=== PATIENT | male | born 1945 | race Caucasian/White ===

== ENCOUNTER 2018-01-03 18:33 | Inpatient (IN) ==
[2018-01-03 19:11] LABS: Basophils % 0.3 %; Eosinophils # 0.1 K/mcL (0.0-0.6); Hematocrit 42.5 % (37.5-50.1); Hemoglobin 14.6 g/dL (12.9-16.9); Immature Granulocytes % 0.4 % (0-4); Lymphocytes # 2.4 K/mcL (0.6-4.6); Mean Corpuscular HGB Conc 34.4 g/dL (31.6-35.5); Mean Corpuscular Hemoglobin 29.9 pg (28.0-33.3); Mean Corpuscular Volume 87.1 fL (83.0-100.0); Mean Platelet Volume 11.5 fL (9.4-12.4); Monocytes # 0.6 K/mcL (0.0-1.3); Monocytes % 6.1 %; Neutrophils # 6.8 K/mcL (1.6-8.9); Platelet Count 221 K/mcL (140-400); Red Blood Count 4.88 M/mcL (4.19-5.50); Red Cell Distribution Width 14.5 % (11.5-14.5); Segmented Neutrophils % 68.2 %
[2018-01-03 19:30] LABS: BUN/Creatinine Ratio 17 (6-26); Blood Urea Nitrogen 35 mg/dL (8-23); Carbon Dioxide 25 mEq/L (23-29); Chloride 103 mEq/L (98-107); Glucose 202 mg/dL (70-105); Osmolality,Calculated 302 (280-300); Potassium 3.6 mEq/L (3.5-5.1); Sodium 139 mEq/L (136-145); eGFR For African Americans 38 (> 60); eGFR For Non-African Americans 31 (> 60)
[2018-01-03 19:31] LABS: Troponin I < 0.03 ng/mL (< 0.04)
--- NOTE | 2018-01-03 20:44 | Emergency Department Note ---
Disposition Clinical Impression: Right arm numbness, Anginal equivalent Disposition: Admitted As Inpatient Condition: Fair Time of Disposition: 20:47 General Adult HPI - General Chief complaint: ED Extremity Problem,Nontraumatic Stated complaint: right hand decreased movement Time Seen by Provider: 01/03/18 18:49 Source: patient Mode of arrival: ambulatory Limitations: no limitations Nursing Notes Reviewed: Yes Vital Signs Reviewed: Yes - History of Present Illness HPI Narrative: Patient presents to the ED with 2 complaints. Patient states that he has a history of an CT 14 years ago which apparently resulted in cardiac arrest and transferred to [place] for revascularization. States that he had a stent placed about 4 years ago and that today he started developing similar symptoms to his CT in the past. States that he started getting of vague pain in his upper back and lower neck that radiated to both of his shoulders and made his shoulders and trapezius muscles feel weak. Denies any chest pain but states he got sweaty and nauseated, dizzy and almost passed out. 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 No history of CVA. He does take aspirin and has had no recent falls. He states it has been about the same throughout the day. He states that his strength feels normal, but it feels numb, so he does not feel like he can grasp things as strongly as he could, because he cannot feel it. No fever or recent illnesses. Pain Scale: 7 - Related Data Home Medications Medication Instructions Recorded Confirmed Carvedilol [Coreg] 6.25 mg PO BIDWM 10/08/16 01/03/18 Hydrochlorothiazide [Microzide] 12.5 mg PO DAILY 10/08/16 01/03/18 Aspirin [Lo-Dose Aspirin EC] 81 mg PO DAILY 11/09/17 01/03/18 Atorvastatin [Lipitor] 10 mg PO HS 11/09/17 01/03/18 Famotidine [Heartburn Prevention] 20 mg PO BID 11/09/17 01/03/18 Fluticasone Propionate Nasal 1 spray NS DAILY 11/09/17 01/03/18 [Flonase] Insulin LISPRO [Humalog Kwikpen 10 unit SQ DAILY 11/09/17 01/03/18 U-100] Lisinopril [Zestril] 10 mg PO DAILY 11/09/17 01/03/18 Paroxetine [Paxil] 30 mg PO DAILY 01/03/18 01/03/18 Allergies Allergy/AdvReac Type Severity Reaction Status Date / Time duloxetine [From Cymbalta] Allergy Chest Pain Verified 07/29/17 13:46 Review of Systems: As reviewed in the HPI. All other systems reviewed are negative or normal. Past Medical History - Past Medical History Attestation: Yes The following information was validated with the patient. Source: patient Medical history: Reports: arthritis, diabetes, hypertension, myocardial infarction Psychiatric history: Reports: anxiety, depression - Social History Smoking Status: Former smoker Smokeless Tobacco Status: No Alcohol use: Reports: none Drug use: Reports: none Physical Exam CONSTITUTIONAL: [Ill-appearing, diaphoretic, pale, uncomfortable] SKIN: Warm, diaphoretic, pale, no rash EYES: [extraocular movements are grossly intact, clear conjunctiva] HENT: [Normocephalic, atraumatic, moist mucus membranes] NECK: [no obvious swelling, normal range of motion] PULMONARY: [normal chest rise and fall, no respiratory distress or stridor CARDIOVASCULAR: [regular rate, distal extremities are warm and well perfused] GASTROINSTESTINAL: [nondistended, non-tender] GENITOURINARY: [deferred] NEUROLOGIC: [normal speech, moves all extremities, cranial nerves II through XII intact, 5 out of 5 strength in all extremities. 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 States that he feels like he was having another heart attack, but did not have chest pain in the past and have this bilateral shoulder heaviness and weakness, nausea and diaphoresis. Also complaining of right arm numbness. We will check labs, chest x-ray, EKG and head CT. - Reevaluation(s) Reevaluation #1: Head CT, EKG, chest x-ray are all normal. His troponins normal. EKG did not show any acute ischemic changes. The patient will definitely need to be admitted for further workup and trending of his troponin. Vital Signs Temperature 99.6 F 01/03/18 18:37 Pulse Rate 81 01/03/18 18:37 Respiratory Rate 16 01/03/18 18:37 Blood Pressure 106/62 01/03/18 18:37 O2 Sat by Pulse Oximetry 96 01/03/18 18:37 Temperature 99.6 F 01/03/18 18:45 Pulse Rate 86 01/03/18 22:10 Respiratory Rate 18 01/03/18 22:10 Blood Pressure 120/63 01/03/18 22:10 O2 Sat by Pulse Oximetry 99 01/03/18 22:10 Oxygen Delivery Oxygen Delivery Room Air Medical Decision Making - Medical Records Medical records reviewed: Yes I reviewed the patient's medical records. - Lab Data Lab results reviewed: Yes I reviewed the patient's lab results. Result diagrams: 01/03/18 18:56 01/03/18 18:56 Lab Results 01/03/18 01/03/18 01/03/18 Range/Units 18:55 18:56 18:56 WBC 10.0 (4.3-11.1) K/mcL RBC 4.88 (4.19-5.50) M/mcL Hgb 14.6 (12.9-16.9) g/dL Hct 42.5 (37.5-50.1) % MCV 87.1 (83.0-100.0) fL MCH 29.9 (28.0-33.3) pg MCHC 34.4 (31.6-35.5) g/dL RDW 14.5 (11.5-14.5) % Plt Count 221 (140-400) K/mcL MPV 11.5 (9.4-12.4) fL Immature Gran % 0.4 (0-4) % Seg Neutrophils % 68.2 % Lymphocytes % 24.0 % Monocytes % 6.1 % Eosinophils % 1.0 % Basophils % 0.3 % Neutrophils # 6.8 (1.6-8.9) K/mcL Lymphocytes # 2.4 (0.6-4.6) K/mcL Monocytes # 0.6 (0.0-1.3) K/mcL Eosinophils # 0.1 (0.0-0.6) K/mcL Basophils # 0.0 (0.0-0.2) K/mcL Sodium 139 (136-145) mEq/L Potassium 3.6 (3.5-5.1) mEq/L Chloride 103 (98-107) mEq/L Carbon Dioxide 25 (23-29) mEq/L BUN 35 H (8-23) mg/dL Creatinine 2.09 H (0.70-1.30) mg/dL Est GFR ( Amer) 38 L (> 60) Est GFR (Non-Af Amer) 31 L (> 60) BUN/Creatinine Ratio 17 (6-26) Glucose 202 H (70-105) mg/dL Est Mean Plasma Glucose 180 mg/dl Hemoglobin A1c 7.9 H ( - 5.6) % Calculated Osmolality 302 H (280-300) Calcium 9.0 (8.6-10.3) mg/dL Troponin I < 0.03 (< 0.04) ng/mL - Radiology Data Radiology results reviewed: Yes I reviewed the patient's radiology results. - EKG Data EKG #1 EKG attestation: Yes I reviewed and interpreted this EKG. EKG results narrative: Sinus rhythm, rate 80, para 186, QRS 98, QTC 414, left axis deviation, nonspecific ST-T wave changes laterally, no significant changes from previous Attestation Statement - Attestation Attestation: I examined this patient and my medical decision-making was reviewed with the Resident Physician. I agree with the documented findings, disposition and treatment plan as described except to the extent set forth below.
[2018-01-03] MEDS ORDERED: Naloxone 0.4 MG/ML INJ IVP PRN (21:06)
[2018-01-03] MEDS ORDERED: *HR* Dextrose 50 % in Water (Syg) 50 ML SYRINGE IVP PRN (21:09)
[2018-01-03] MEDS ORDERED: D5% in Water 1,000 ML IVC PRN (21:09)
[2018-01-03] MEDS ORDERED: Dextrose Gel 15 GM/37.5 ML TUBE PO PRN ×2 (21:09)
[2018-01-03] MEDS ORDERED: Ringers Solution, Lactated 1,000 ML IVC SCH (21:15)
--- NOTE | 2018-01-03 21:34 | Internal Med History&Physical ---
Date of Encounter: 01/03/18 Time of Encounter: 21:00 Internal Medicine - H&P: HPI Chief complaint: Right neck and shoulder pain along with right hand weakness and numbness Admitted From: Home Plans for Post Hospital Care: Home History of present illness: Mr. Paredes is a 72 year old male patient with history of prior coronary artery disease and SC status post coronary artery stents presented to the ER with complaints of right-sided neck pain and shoulder pain along with weakness and numbness in his right hand. Symptoms began this morning. Patient reports increased sweating during this episode. While some of his strength has returned to his right hand he still feels a little bit numb. His never had symptoms like this before although he reports that during his last SC, he had bilateral shoulder pain without any chest pain. He denies any shortness of breath at this time. No palpitations. He does complain of some nausea and vomiting earlier today. No fever or chills reported recently. Patient states that 3 years back he underwent left heart catheterization and had a stent replaced. He was also previously told to undergo placement of AICD but he had not been able to undergo this procedure due to work-related issues. He is now retired and willing to undergo placement if needed. He denies any dizziness or syncopal episodes. Past Med Surg Social Fam HX - Past Medical History Attestation: Yes The following information was validated with the patient. Source: patient Medical history: arthritis, diabetes, hypertension, myocardial infarction Psychiatric history: anxiety, depression - Past Surgical History Additional surgical history: Back sx, ilateral knee sx - Social History Smoking Status: Former smoker Smokeless Tobacco Status: No Alcohol use: none Drug use: none Internal Medicine - H&P: Meds Carvedilol [Coreg] 6.25 mg PO BIDWM 10/08/16 [History] Hydrochlorothiazide [Microzide] 12.5 mg PO DAILY 10/08/16 [History] Aspirin [Lo-Dose Aspirin EC] 81 mg PO DAILY 11/09/17 [History] Atorvastatin [Lipitor] 10 mg PO HS 11/09/17 [History] Famotidine [Heartburn Prevention] 20 mg PO BID 11/09/17 [History] Fluticasone Propionate Nasal [Flonase] 1 spray NS DAILY 11/09/17 [History] Insulin LISPRO [Humalog Kwikpen U-100] 10 unit SQ DAILY 11/09/17 [History] Lisinopril [Zestril] 10 mg PO DAILY 11/09/17 [History] Paroxetine [Paxil] 30 mg PO DAILY 01/03/18 [History] 3 Allergy/AdvReac Type Severity Reaction Status Date / Time duloxetine [From Cymbalta] Allergy Chest Pain Verified 07/29/17 13:46 All Systems PM: A 10-system review of systems was performed and is negative for pertinent findings except as documented above in the HPI. - Constitutional Constitutional: no chills, no fever(s), no night sweats - EENT Eyes: no change in vision, no discharge, no pain, no photophobia Ears: no ear discharge, no ear pain, no tinnitus Nose, mouth and throat: no dysphagia, no nasal discharge, no neck pain, no sore throat - Cardiovascular Cardiovascular ROS IM: no chest pain, no diaphoresis, no dyspnea, no lightheadedness, no palpitations, no syncope - Respiratory Respiratory: no cough, no dyspnea, no wheezing, no excessive phlegm production - Gastrointestinal Gastrointestinal: no abdominal pain, no diarrhea, no hematemesis, no hematochezia, no melena, no nausea, no vomiting - Musculoskeletal Musculoskeletal ROS IM: neck pain, no numbness, no tingling - Integumentary Integumentary IM: no rash, no unusual bruising - Neurological Neurological ROS: no confusion, no convulsions, no focal weakness, no numbness, no tingling, no tremor(s) - Hematologic/Lymphatic Hematologic/Lymphatic: no easy bruising - Constitutional Vitals: Temp Pulse Resp BP Pulse Ox 99.6 F 77 18 123/76 100 01/03/18 18:45 01/03/18 20:03 01/03/18 20:03 01/03/18 20:03 01/03/18 20:03 General appearance: Present: cooperative, mild distress, A&O X 3, answers questions appropriately - Eye Eye exam: Present: EOMI, PERRL, conjuntiva pink, sclera anicteric - Neck Neck exam general surgery: Present: tenderness (Over right sternocleidomastoid and trapezius muscles), supple, trachea midline. Absent: lymphadenopathy - Respiratory Respiratory exam: Present: CTAB. Absent: accessory muscle use, rales, rhonchi, wheezes - Cardiovascular Cardiovascular exam: Present: RRR, +S1, +S2. Absent: diastolic murmur, gallop, rubs, systolic murmur - GI/Abdominal GI/Abdominal exam: Present: normal bowel sounds, soft, no peritoneal signs. Absent: distended, tenderness - Extremities Exam Extremities exam: Present: warm, radial pulses palpable and symmetrical. Absent : calf tenderness, cyanotic, pedal edema - Neurological Exam Neurological exam: Present: CN II-XII intact, oriented X3. 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 Strength is normal in all other extremities - Psychiatric Psychiatric exam: Present: normal affect, normal mood Internal Med - H&P Results - Labs CBC & Chem 7: 01/03/18 18:56 01/03/18 18:56 - EKG Data -: EKG Interpreted by Myself EKG shows normal: sinus rhythm - Impressions Impressions Chest X-Ray 01/03/18 18:49 IMPRESSION: Negative portable study. D/ / Barbara Cha Cha, MD / Barbara Cha Cha, MD Interpreting Provider: Barbara Cha Cha, MD Head CT 01/03/18 19:33 IMPRESSION: No acute intracranial abnormality. D/ / Barbara Cha Cha, MD / Barbara Cha Cha, MD Interpreting Provider: Barbara Cha Cha, MD - Assessment and plan (1) Weakness of right hand Current Visit: Yes Status: Acute Assessment and plan: Uncertain etiology but given the patient's neck pain and right shoulder pain most likely related to cervical radiculopathy. Will get MRI of the cervical spine. We will also get MRI of the brain to look for any lacunar stroke. (2) Acute kidney injury superimposed on CKD Current Visit: Yes Status: Acute Assessment and plan: DEVON superimposed on Chronic kidney disease stage III. Creatinine 2.09. Previous value 1.75 in July. We will treat with gentle hydration. Recheck renal function morning. Avoid nephrotoxic agents. Hold hydrochlorothiazide. (3) Coronary artery disease Current Visit: Yes Status: Chronic Assessment and plan: Patient with history of coronary artery disease status post stents. Continue aspirin, Lipitor and carvedilol. We will get 2-D echocardiogram as he reported that his symptoms were similar in nature to his prior episode of SC. Trend troponins. Qualifiers: Coronary Disease-Associated Artery/Lesion type: [place] artery [place] vs. transplanted heart: [place] heart Associated angina: without angina Qualified Code(s): I25.10 - Atherosclerotic heart disease of sy[place] coronary artery without angina pectoris (4) Cervical radiculopathy Current Visit: Yes Status: Suspected Assessment and plan: Symptoms of right hand weakness and right neck pain. Concerning for cervical radiculopathy. Will get MRI of the C-spine. Symptomatic care. (5) Diabetes mellitus, type 2 Current Visit: Yes Status: Chronic Assessment and plan: monitor blood sugars. Place patient on sliding scale insulin coverage. Diabetic diet. Check A1c Qualifiers: Diabetes mellitus terminal gauger insulin use: with [facility]cf use Diabetes mellitus complication status: with kidney complications Diabetes mellitus complication detail: with chronic kidney disease Chronic kidney disease stage : stage 3 (moderate) Qualified Code(s): E11.22 - Type 2 diabetes mellitus with diabetic chronic kidney disease; N18.3 - Chronic kidney disease, stage 3 ( moderate); Z79.4 - [facility] (current) use of insulin (6) Essential hypertension Current Visit: Yes Status: Chronic Assessment and plan: Monitor blood pressure. Continue Coreg and Zestril. Hold hydrochlorothiazide (7) Gastroesophageal reflux disease Current Visit: Yes Status: Chronic Assessment and plan: Patient takes famotidine. We will continue this medication Qualifiers: Esophagitis presence: esophagitis presence not specified Qualified Code(s) : K21.9 - Gastro-esophageal reflux disease without esophagitis - Time Spent With Patient Total time spent is greater than 50% in coordination of care (as documented) at patient's floor/unit and/or counseling patient:
[2018-01-03 21:43] LABS: Estimated Average Glucose 180 mg/dl; Hemoglobin A1C 7.9 %
[2018-01-03] MEDS ORDERED: Famotidine 20 MG TABLET PO STA (22:05)
[2018-01-03] MEDS: Famotidine 20 MG TABLET PO SCH (22:55)
--- NOTE | 2018-01-03 22:55 | Emergency Department Note ---
Disposition Clinical Impression: Right arm numbness, Anginal equivalent Disposition: Admitted As Inpatient Condition: Fair General Adult HPI - General Chief complaint: ED Extremity Problem,Nontraumatic Stated complaint: right hand decreased movement Time Seen by Provider: 01/03/18 18:49 Source: patient Mode of arrival: ambulatory Limitations: no limitations Nursing Notes Reviewed: Yes Vital Signs Reviewed: Yes - History of Present Illness Pain Scale: 0 - Related Data Home Medications Medication Instructions Recorded Confirmed Carvedilol [Coreg] 6.25 mg PO BIDWM 10/08/16 01/03/18 Hydrochlorothiazide [Microzide] 12.5 mg PO DAILY 10/08/16 01/03/18 Aspirin [Lo-Dose Aspirin EC] 81 mg PO DAILY 11/09/17 01/03/18 Atorvastatin [Lipitor] 10 mg PO HS 11/09/17 01/03/18 Famotidine [Heartburn Prevention] 20 mg PO BID 11/09/17 01/03/18 Fluticasone Propionate Nasal 1 spray NS DAILY 11/09/17 01/03/18 [Flonase] Insulin LISPRO [Humalog Kwikpen 10 unit SQ DAILY 11/09/17 01/03/18 U-100] Lisinopril [Zestril] 10 mg PO DAILY 11/09/17 01/03/18 Paroxetine [Paxil] 30 mg PO DAILY 01/03/18 01/03/18 Allergies Allergy/AdvReac Type Severity Reaction Status Date / Time duloxetine [From Cymbalta] Allergy Chest Pain Verified 07/29/17 13:46 Past Medical History - Past Medical History Medical history: Reports: arthritis, diabetes, hypertension, myocardial infarction Psychiatric history: Reports: anxiety, depression - Social History Smoking Status: Former smoker Smokeless Tobacco Status: No Alcohol use: Reports: none Drug use: Reports: none Physical Exam - General Limitations: no limitations General appearance: alert Course Vital Signs Temperature 99.6 F 01/03/18 18:37 Pulse Rate 81 01/03/18 18:37 Respiratory Rate 16 01/03/18 18:37 Blood Pressure 106/62 01/03/18 18:37 O2 Sat by Pulse Oximetry 96 01/03/18 18:37 Temperature 99.6 F 01/03/18 18:45 Pulse Rate 86 01/03/18 22:10 Respiratory Rate 18 01/03/18 22:10 Blood Pressure 120/63 01/03/18 22:10 O2 Sat by Pulse Oximetry 99 01/03/18 22:10 Oxygen Delivery Oxygen Delivery Room Air Medical Decision Making - Lab Data Result diagrams: 01/03/18 18:56 01/03/18 18:56 Lab Results 01/03/18 01/03/18 01/03/18 Range/Units 18:55 18:56 18:56 WBC 10.0 (4.3-11.1) K/mcL RBC 4.88 (4.19-5.50) M/mcL Hgb 14.6 (12.9-16.9) g/dL Hct 42.5 (37.5-50.1) % MCV 87.1 (83.0-100.0) fL MCH 29.9 (28.0-33.3) pg MCHC 34.4 (31.6-35.5) g/dL RDW 14.5 (11.5-14.5) % Plt Count 221 (140-400) K/mcL MPV 11.5 (9.4-12.4) fL Immature Gran % 0.4 (0-4) % Seg Neutrophils % 68.2 % Lymphocytes % 24.0 % Monocytes % 6.1 % Eosinophils % 1.0 % Basophils % 0.3 % Neutrophils # 6.8 (1.6-8.9) K/mcL Lymphocytes # 2.4 (0.6-4.6) K/mcL Monocytes # 0.6 (0.0-1.3) K/mcL Eosinophils # 0.1 (0.0-0.6) K/mcL Basophils # 0.0 (0.0-0.2) K/mcL Sodium 139 (136-145) mEq/L Potassium 3.6 (3.5-5.1) mEq/L Chloride 103 (98-107) mEq/L Carbon Dioxide 25 (23-29) mEq/L BUN 35 H (8-23) mg/dL Creatinine 2.09 H (0.70-1.30) mg/dL Est GFR ( Amer) 38 L (> 60) Est GFR (Non-Af Amer) 31 L (> 60) BUN/Creatinine Ratio 17 (6-26) Glucose 202 H (70-105) mg/dL Est Mean Plasma Glucose 180 mg/dl Hemoglobin A1c 7.9 H ( - 5.6) % Calculated Osmolality 302 H (280-300) Calcium 9.0 (8.6-10.3) mg/dL Troponin I < 0.03 (< 0.04) ng/mL Attestation Statement - Attestation Attestation: I examined this patient and my medical decision-making was reviewed with the Resident Physician. I agree with the documented findings, disposition and treatment plan as described except to the extent set forth below. 72-year-old male presents to the ED because of abrupt onset of pain in his neck , upper chest, back and right arm. Symptoms came on precipitously prior to arrival and associated with nausea, dyspnea and diaphoresis. He reports is the same spectrum the symptoms he had with his previous [facility] that required placement of coronary stents. No recent illnesses. When asked about recent exertional symptoms he is not able to give consistent answers. He also reports weakness of his right hand at the onset of symptoms stating that his hand was numb and he was unable to hold onto objects. No history of CVA in the past. Patient is awake and talkative. Oropharynx is clear mucous membranes membranes moist. Trachea midline. Tongue and uvula are midline. Neck is supple. No carotid bruits appreciated on auscultation. Cardiac exam regular distant heart tones. Abdomen soft, nondistended nontender. Lung exam is symmetric with good air entry throughout. External is warm and dry. Peripheral pulses are symmetric and brisk. He does have slight asymmetric weakness of his right hand and arm. Strength of the Legs are symmetric. She normal gross sensation bilaterally. Initial EKG was negative. First troponin was normal. CT was read as negative for any acute process. He was given aspirin and will be admitted to the hospital for further evaluation.
[2018-01-03] MEDS: Acetaminophen 325 MG TABLET PO PRN (23:50)
[2018-01-04] MEDS: *HR* Heparin 5,000 UNIT/ML VIAL SQ SCH ×2 (06:03→17:45)
[2018-01-04] MEDS ORDERED: Famotidine 20 MG TABLET PO SCH ×2 (07:30→17:17)
[2018-01-04 07:46] LABS: Basophils % 0.4 %; Eosinophils # 0.1 K/mcL (0.0-0.6); Eosinophils % 1.5 %; Hematocrit 37.6 % (37.5-50.1); Hemoglobin 13.1 g/dL (12.9-16.9); Immature Granulocytes % 0.4 % (0-4); Lymphocytes # 3.2 K/mcL (0.6-4.6); Lymphocytes % 35.4 %; Mean Corpuscular HGB Conc 34.8 g/dL (31.6-35.5); Mean Corpuscular Hemoglobin 30.3 pg (28.0-33.3); Mean Corpuscular Volume 86.8 fL (83.0-100.0); Mean Platelet Volume 11.8 fL (9.4-12.4); Monocytes # 0.7 K/mcL (0.0-1.3); Monocytes % 7.4 %; Platelet Count 179 K/mcL (140-400); Red Blood Count 4.33 M/mcL (4.19-5.50); Red Cell Distribution Width 14.6 % (11.5-14.5); Segmented Neutrophils % 54.9 %
[2018-01-04 08:16] LABS: Calcium 8.4 mg/dL (8.6-10.3); Chol/HDL Ratio 7.8 (0-4.9); Potassium 3.1 mEq/L (3.5-5.1)
[2018-01-04] MEDS: Famotidine 20 MG TABLET PO SCH (08:44)
[2018-01-04] MEDS: Aspirin Enteric Coated 81 MG Tablet PO SCH (08:46)
[2018-01-04] MEDS: Fluticasone Propionate Nasal 50 MCG/SPRAY BOTTLE NS SCH (08:47)
[2018-01-04] MEDS: Insulin LISPRO 300 UNITS/3 ML VIAL SQ SCH ×4 (08:47→20:55)
[2018-01-04] MEDS: Acetaminophen 325 MG TABLET PO PRN ×3 (08:55→20:53)
[2018-01-04] MEDS ORDERED: Perflutren Lipid Microsphere 1.3 ML in 0.9 % Sodium Chloride 8.7 ML IVP ONE (11:23)
--- NOTE | 2018-01-04 11:50 | Internal Med Progress Note ---
Date of Encounter: 01/04/18 Time of Encounter: 11:48 - Assessment and plan (1) Weakness of right hand Current Visit: Yes Status: Acute Assessment and plan: Weakness, numbness and tingling of right hand. Etiology unclear, CT of head with no acute intracranial abnormality but given the patient's neck pain and right shoulder pain most likely related to cervical radiculopathy Will get MRI of the cervical spine. We will also get MRI of the brain to look for any lacunar stroke, pending completion No focal neuro deficits on today's exam Weakness, numbness and tingling improving Mild right upper extremity strength deficit when compared to left Consider neuro consult based on findings of MRI of cervical spine and brain TTE in bilateral carotid Dopplers pending completion (2) Coronary artery disease Current Visit: Yes Status: Chronic Assessment and plan: Patient with history of coronary artery disease status post stents. He is on aspirin, Lipitor and carvedilol continue these medications. History of prior [facility] , reporting similar presentation, Trend troponins. TTE, denies any chest pain , hemodynamically stable and no ECG changes concerning for ischemia Qualifiers: Coronary Disease-Associated Artery/Lesion type: [place] artery [place] vs. transplanted heart: [place] heart Associated angina: without angina Qualified Code(s): I25.10 - Atherosclerotic heart disease of [place] coronary artery without angina pectoris (3) Cervical radiculopathy Current Visit: Yes Status: Suspected Assessment and plan: Suspect possible cervical radiculopathy, see plan above (4) Diabetes mellitus, type 2 Current Visit: Yes Status: Chronic Assessment and plan: History of type 2 diabetes, A1c 7.9. Today's labs monitor blood sugars. Continue sliding scale insulin coverage. 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 insulin use: with long-term use Diabetes mellitus complication status: with kidney complications Diabetes mellitus complication detail: with chronic kidney disease Chronic kidney disease stage : stage 3 (moderate) Qualified Code(s): E11.22 - Type 2 diabetes mellitus with diabetic chronic kidney disease; N18.3 - Chronic kidney disease, stage 3 ( moderate); Z79.4 - medical terminologist (current) use of insulin (5) Essential hypertension Current Visit: Yes Status: Chronic Assessment and plan: History of hypertension, stable Continue SHARON inhibitor and beta nadine (6) Gastroesophageal reflux disease Current Visit: Yes Status: Chronic Assessment and plan: Continue H2 Qualifiers: Esophagitis presence: esophagitis presence not specified Qualified Code(s) : K21.9 - Gastro-esophageal reflux disease without esophagitis (7) Acute kidney injury superimposed on CKD Current Visit: Yes Status: Acute Assessment and plan: DEVON superimposed on Chronic kidney disease stage III. Serum creatinine remains elevated at 1.97 today, continue closely monitor function. We will treat with gentle hydration. Avoid nephrotoxic agents. Continue to hold hydrochlorothiazide. - Time Spent With Patient Total time spent is greater than 50% in coordination of care (as documented) at patient's floor/unit and/or counseling patient: 25 - 35 minutes - Subjective Interval history: Mr. Paredes is a 70-year-old male with a CC/oh right-sided neck and shoulder pain as well as numbness tingling and weakness of right hand. Symptoms began yesterday. Seen and examined at bedside today, no acute changes overnight. Patient reporting that his strength is returning to his right hand. Continuing to report mild numbness but no longer having tingling sensations. Denies any additional neurological concerns - Constitutional Vitals: Temp Pulse Resp BP Pulse Ox 97.1 F L 75 18 145/76 97 01/04/18 07:39 01/04/18 07:39 01/04/18 07:39 01/04/18 07:39 01/04/18 07:39 General appearance: Present: cooperative, mild distress, A&O X 3, answers questions appropriately - Head Head exam: Present: atraumatic, normocephalic - Eye Eye exam: Present: PERRL, conjuntiva pink, sclera anicteric Pupils: Present: PERRL - Neck Neck exam general surgery: Present: supple, trachea midline. Absent: lymphadenopathy - Respiratory Respiratory exam: Present: CTAB. Absent: accessory muscle use, rales, rhonchi, wheezes - Cardiovascular Cardiovascular exam: Present: RRR, +S1, +S2. Absent: diastolic murmur, gallop, rubs, systolic murmur - GI/Abdominal GI/Abdominal exam: Present: normal bowel sounds, soft, no peritoneal signs. Absent: distended, tenderness - Extremities Exam Extremities exam: Present: warm, radial pulses palpable and symmetrical. Absent : calf tenderness, cyanotic, pedal edema - Neurological Exam Neurological exam: Present: CN II-XII intact, oriented X3, no focal deficits. Absent: pronater drift, facial droop, speech deficit - Expanded Neurological Exam Neurological exam expanded: Absent: expressive aphasia, receptive aphasia Patient oriented to: Present: person, place, time Speech: Present: fluid speech. Absent: expressive aphasia, receptive aphasia Cranial Nerves: EOM's intact PM: Normal, nystagmus PM: Normal, tongue deviation PM: Normal Cerebellar function: finger to nose: Normal, heel to escudero: Normal, Romberg: Normal Neuro motor strength exam: LUE: 5, RUE: 5 (Right upper arm, mild strength deficits compared to right), LLE: 5, RLE: 5 Coma Scale Eye Opening: Spontaneous Coma Scale Motor Response: Obeys Commands Coma Scale Verbal Response: Oriented Coma Scale Total: 15 - Skin Skin exam: Present: dry, intact Internal Medicine: Result - Labs CBC & Chem 7: 01/04/18 06:42 01/04/18 06:42 Labs: Short CBC 01/04/18 Range/Units 06:42 WBC 9.1 (4.3-11.1) K/mcL Hgb 13.1 D (12.9-16.9) g/dL Hct 37.6 (37.5-50.1) % Plt Count 179 (140-400) K/mcL Neutrophils # 5.0 (1.6-8.9) K/mcL BMP 01/04/18 06:42 Sodium 140 Potassium 3.1 L Chloride 104 Carbon Dioxide 26 BUN 35 H Creatinine 1.97 H Glucose 176 H Calcium 8.4 L Cardiac Enzymes 01/04/18 01/04/18 Range/Units 00:58 06:42 Troponin I < 0.03 < 0.03 (< 0.04) ng/mL Consult Discharge Plan - Plan Referrals: Rehan Diaz MD [Primary Care Provider] -
[2018-01-04] MEDS: 0.9 % Sodium Chloride 1,000 ML IVC SCH (13:34)
--- NOTE | 2018-01-04 19:04 | Neurology - Consult Note ---
Date of Encounter: 01/04/18 Time of Encounter: 18:59 Assessment and Plan (1) Acute cerebral infarction Current Visit: Yes Status: Acute It seems likely that we are dealing with either a cardioembolic event, versus atheromatous emboli from the aortic arch. His deficits have improved significantly. I would recommend adding Plavix 75 mg daily and discontinuing the aspirin 81 mg daily. I would also recommend transesophageal echocardiogram , to rule out plaquing in the or aortic arch. Finally I would recommend vascular consultation to determine whether or not a CTA or MRA imaging of the cervical vasculature is necessary. It seems that he already has some renal insufficiency which may preclude his candidacy for contrasted study. Aggressive management of her stroke risk factors is paramount. I will reevaluate him at your request. History of Present Illness HPI: The chart was reviewed, patient was seen and examined. Mr. Paredes is a 72 year old male is being seen for neurologic consultation secondary to multiple scattered bihemispheric acute cerebral infarcts. He states that yesterday at about 4:30 in the evening he was at a store and experienced sudden onset of numbness in the right hand. Shortly thereafter he also felt intensely diaphoretic with some right-sided neck pain. He denies loss of consciousness. He denied any confusion. Denied speech difficulty denied headache denied visual difficulty denied any weakness of the right leg. Symptoms have improved significantly over the last day. He does have a history of ischemic heart disease and had a stent placed about 3 years or so ago. He is alert and oriented and able to give a good lucid history. He does have stroke risk factors which include hypertension, diabetes mellitus, hyperlipidemia. Echocardiogram does reveal mild segmental left ventricular systolic dysfunction and atypical septal motion consistent with a bundle branch block. I did review the MRI scan of the brain which does reveal scattered acute infarcts bilaterally consistent with a cardioembolic phenomenon. Glucose was elevated at 202. He states that he has already been on aspirin 81 mg daily. Past Med Surg Social Fam HX - Past Medical History Medical history: arthritis, diabetes, hypertension, myocardial infarction Psychiatric history: anxiety, depression - Past Surgical History Additional surgical history: Back sx, ilateral knee sx, CARDIAC STENTS - Social History Smoking Status: Former smoker Smokeless Tobacco Status: No Alcohol use: none Drug use: none - Family History Father Adopted: [place]: [place] Family Member Ethnicity: Non- Living Status: Age at : 71 Cause of : HEART PROBLEMS Hx Family Cardiac Disorders: Yes (HTN) Hx Family Respiratory Disorders: Yes (ASTHMA) Hx Family Cancer: No Hx Family GI Disorders: No Hx Family Genitourinary Disorders: No Hx Family Endocrine Disorder: No Hx Family Musculoskeletal Disorders: No Hx Family Neuromuscular Disorders: No Hx Family Neurologic Disorders: Yes (POSSIBLE STROKE) Hx Family HEENT Disorders: No Hx Family Autoimmune Disorders: No Hx Family Reproductive Disorders: No Hx Family Psychosocial Disorders: No Hx Family Medical Disorders: No Medications and Allergies Carvedilol [Coreg] 6.25 mg PO BIDWM 10/08/16 [History] Hydrochlorothiazide [Microzide] 12.5 mg PO DAILY 10/08/16 [History] Aspirin [Lo-Dose Aspirin EC] 81 mg PO DAILY 11/09/17 [History] Atorvastatin [Lipitor] 10 mg PO HS 11/09/17 [History] Famotidine [Heartburn Prevention] 20 mg PO BID 11/09/17 [History] Fluticasone Propionate Nasal [Flonase] 1 spray NS DAILY 11/09/17 [History] Insulin LISPRO [Humalog Kwikpen U-100] 10 unit SQ DAILY 11/09/17 [History] Lisinopril [Zestril] 10 mg PO DAILY 11/09/17 [History] Paroxetine [Paxil] 30 mg PO DAILY 01/03/18 [History] 3 Allergy/AdvReac Type Severity Reaction Status Date / Time duloxetine [From Cymbalta] Allergy Chest Pain Verified 07/29/17 13:46 All Systems: The remainder of the systems were reviewed and are negative Review of Systems: Balance of the systems review is negative. Physical Examination - Vital Signs Vital Signs: Initial Vital Signs Temp Pulse Resp BP Pulse Ox 99.6 F 81 16 106/62 96 01/03/18 18:37 01/03/18 18:37 01/03/18 18:37 01/03/18 18:37 01/03/18 18:37 - Neurologic Detailed motor examination: full strength in all major muscle groups Motor examination - right side: 5/5: deltoids, biceps, triceps, wrist flexion, wrist extension, guide winder, hip flexors, tibialis Anterior, quadriceps, toe extension (EHL), plantarflexion Motor examination - left side: 5/5: deltoids, biceps, triceps, wrist flexion, wrist extension, hip flexors, guide winder, quadriceps, tibialis Anterior, toe extension (EHL), plantarflexion Mental Status Examination: awake, alert, oriented to person, oriented to place, oriented to time, follows commands appropriately, answers questions appropriately, no agnosia, no aphasia, no aproxia Cranial nerve examination: PERRL, EOMI, visual lieberman intact, corneal reflexes brisk symmetrically, sensory to face intact, mastication intact, no facial asymmetry is present, no dysarthria, hearing is intact symmetrically, soft palate elevates bilaterally upon phonation, gag reflex intact, flexes SCM and trapezius muscles symmetrically with full power, tongue protrudes midline, no atrophy or facial fasiculations present Cerebellar examination: no dysmetria, performs finger to nose and heel to escudero symmetrically without ataxia, no gait ataxia, no truncal ataxia, no difficulty with rapid alternating movements Results - Laboratory Findings CBC and BMP: 01/04/18 06:42 01/04/18 06:42 Abnormal lab findings: Abnormal lab results RDW 14.6 % (11.5-14.5) H 01/04/18 06:42 Potassium 3.1 mEq/L (3.5-5.1) L 01/04/18 06:42 BUN 35 mg/dL (8-23) H 01/04/18 06:42 Creatinine 1.97 mg/dL (0.70-1.30) H 01/04/18 06:42 Est GFR ( Amer) 41 (> 60) L 01/04/18 06:42 Est GFR (Non-Af Amer) 34 (> 60) L 01/04/18 06:42 Glucose 176 mg/dL (70-105) H 01/04/18 06:42 POC Glucose 205 mg/dL (70-99) H 01/04/18 15:52 Hemoglobin A1c 7.9 % (-5.6) H 01/03/18 18:55 Calculated Osmolality 302 (280-300) H 01/04/18 06:42 Calcium 8.4 mg/dL (8.6-10.3) L 01/04/18 06:42 Triglycerides 308 mg/dL (< 150) H 01/04/18 06:42 Cholesterol 225 mg/dL (< 200) H 01/04/18 06:42 LDL Cholesterol, Calc 134 mg/dL (0-99) H 01/04/18 06:42 VLDL Cholesterol, Calc 62 mg/dL (< 31) H 01/04/18 06:42 HDL Cholesterol 29 mg/dL (40-59) L 01/04/18 06:42 Cholesterol/HDL Ratio 7.8 (0-4.9) H 01/04/18 06:42 Consult Discharge Plan - Plan Referrals: Nico Toledo MD [Partnered Physician] -
[2018-01-05] MEDS: 0.9 % Sodium Chloride 1,000 ML IVC SCH (03:01)
[2018-01-05] MEDS: Acetaminophen 325 MG TABLET PO PRN ×4 (03:06→23:13)
[2018-01-05] MEDS: Famotidine 20 MG TABLET PO SCH ×2 (06:08→16:50)
[2018-01-05] MEDS: *HR* Heparin 5,000 UNIT/ML VIAL SQ SCH ×2 (06:14→16:59)
[2018-01-05] MEDS: Aspirin Enteric Coated 81 MG Tablet PO SCH (08:23)
[2018-01-05] MEDS: Insulin LISPRO 300 UNITS/3 ML VIAL SQ SCH ×4 (08:24→21:09)
[2018-01-05] MEDS: Fluticasone Propionate Nasal 50 MCG/SPRAY BOTTLE NS SCH (08:25)
[2018-01-05] MEDS ORDERED: Famotidine 20 MG TABLET PO SCH (09:00)
--- NOTE | 2018-01-05 13:12 | Internal Med Progress Note ---
Date of Encounter: 01/05/18 Time of Encounter: 13:11 - Assessment and plan (1) Acute cerebral infarction Current Visit: Yes Status: Acute Assessment and plan: Acute CVA Patient presented with right arm deficits including right arm weakness, numbness and tingling sliding Deficits have improved, strength back to baseline, minimal numbness and tingling MRI confirming CVA with multiple small acute to subacute embolic infarcts bilaterally Stroke protocol implemented; continue neuro checks Neurology following in consultation; upon discharge patient should have follow- up with neurology 75 mg daily Plavix attic, aspirin discontinued; patient to be discharged home on Plavix Aggressive management of hypertension, diabetes and hyperlipidemia. Simvastatin dose has been increased, BP stable Cardioembolic event versus atheromatous emboli Patient to have a transesophageal echocardiogram on Sunday to rule out plaquing and aortic arch Consult vascular to determine whether or not CTA or MRA imaging of cervical vascular necessary per recommendations of neurology History of renal disease, consider candidacy for contrast study (2) Weakness of right hand Current Visit: Yes Status: Acute Assessment and plan: Strength improving right hand, numbness and tingling in breathing. (3) Coronary artery disease Current Visit: Yes Status: Chronic Assessment and plan: Patient with history of coronary artery disease status post stents. He is on aspirin, Lipitor and carvedilol continue these medications. History of prior MD , reporting similar presentation, Trend troponins. TTE, denies any chest pain , hemodynamically stable and no ECG changes concerning for ischemia Qualifiers: Coronary Disease-Associated Artery/Lesion type: [place] artery [place] vs. transplanted heart: [place] heart Associated angina: without angina Qualified Code(s): I25.10 - Atherosclerotic heart disease of [place] coronary artery without angina pectoris (4) Cervical radiculopathy Current Visit: Yes Status: Ruled-out (5) Diabetes mellitus, type 2 Current Visit: Yes Status: Chronic Assessment and plan: History of type 2 diabetes, A1c 7.9. Today's labs monitor blood sugars. Continue sliding scale insulin coverage. Diabetic diet Qualifiers: Diabetes mellitus custodial insulin use: with salvage determiner use Diabetes mellitus complication status: with kidney complications Diabetes mellitus complication detail: with chronic kidney disease Chronic kidney disease stage : stage 3 (moderate) Qualified Code(s): E11.22 - Type 2 diabetes mellitus with diabetic chronic kidney disease; N18.3 - Chronic kidney disease, stage 3 ( moderate); Z79.4 - senior care (current) use of insulin (6) Essential hypertension Current Visit: Yes Status: Chronic Assessment and plan: History of hypertension, stable Intermittent episodes of hypertension, maintain SBP less than 170 HTN less than 170 okay for reperfusion with CVA Continue SHARON inhibitor and beta nadine (7) Gastroesophageal reflux disease Current Visit: Yes Status: Chronic Assessment and plan: Continue H2 Qualifiers: Esophagitis presence: esophagitis presence not specified Qualified Code(s) : K21.9 - Gastro-esophageal reflux disease without esophagitis (8) Acute kidney injury superimposed on CKD Current Visit: Yes Status: Acute Assessment and plan: DEVON superimposed on Chronic kidney disease stage III. Serum creatinine remains elevated at 1.97 today, continue closely monitor function. We will treat with gentle hydration. Avoid nephrotoxic agents. Continue to hold hydrochlorothiazide. Should renal function worsen consider consult to nephrology - Time Spent With Patient Total time spent is greater than 50% in coordination of care (as documented) at patient's floor/unit and/or counseling patient: 25 - 35 minutes - Subjective Interval history: Mr. Paredes is a 70-year-old male with a CC/oh right-sided neck and shoulder pain as well as numbness tingling and weakness of right hand. Symptoms began yesterday. Seen and examined at bedside today, no acute changes overnight. Patient reporting that his strength has returned to normal normal levels prior to CVA. Numbness and tingling has subsided - Constitutional Vitals: Temp Pulse Resp BP Pulse Ox 99.2 F 64 16 119/62 99 01/05/18 11:00 01/05/18 11:00 01/05/18 11:00 01/05/18 11:01/05/18 11:00 General appearance: Present: cooperative, mild distress, A&O X 3, answers questions appropriately - Head Head exam: Present: atraumatic, normocephalic - Eye Eye exam: Present: EOMI, PERRL, conjuntiva pink, sclera anicteric Pupils: Present: PERRL - Neck Neck exam general surgery: Present: supple, trachea midline. Absent: lymphadenopathy - Respiratory Respiratory exam: Present: CTAB. Absent: accessory muscle use, rales, rhonchi, wheezes - Cardiovascular Cardiovascular exam: Present: RRR, +S1, +S2. Absent: diastolic murmur, gallop, rubs, systolic murmur - GI/Abdominal GI/Abdominal exam: Present: normal bowel sounds, soft, no peritoneal signs. Absent: distended, tenderness - Extremities Exam Extremities exam: Present: warm, radial pulses palpable and symmetrical. Absent : calf tenderness, cyanotic, pedal edema - Neurological Exam Neurological exam: Present: CN II-XII intact, oriented X3, no focal deficits. Absent: pronater drift, facial droop, speech deficit - Skin Skin exam: Present: dry, intact Internal Medicine: Result - Labs CBC & Chem 7: 01/04/18 06:42 01/04/18 06:42 - Impressions Impressions Brain MRI 01/03/18 21:08 IMPRESSION: 1. Findings are most concerning for multiple small acute to subacute embolic infarcts bilaterally, as detailed above. 2. Chronic small vessel ischemic white matter disease and cerebral volume loss. The findings were sent to the Radiology Results [facility] to be communicated to a licensed caregiver. D/ / 01/04/2018 14:46:04 Dylan Rodriguez MD / ankit Interpreting Provider: Dylan Rodriguez MD Cervical Spine MRI 01/03/18 21:08 IMPRESSION: Disc and osteophytes result in moderate stenosis of the thecal sac and narrowing of the neural foramina at C4-5, C5-6, and C6-7 as discussed above. D/ / 01/04/2018 14:48:02 Ju Paredes MD / ankit Interpreting Provider: Ju Paredes MD Echocardiogram 01/04/18 21:07 Impressions: LVEF 45-50%. Normal LV chamber size, wall thickness and mildly reduced function. Mild segmental left ventricular systolic dysfunction. Atypical septal motion consistent with bundle branch block. Mild left ventricular diastolic dysfunction. Normal right ventricular structure and function. Unable to estimate RVSP due to lack of TR jet. No significant valvular dysfunction. Left Ventricular Wall Motion: Rest Echo Findings The apex and apical septal rowe were hypokinetic. All other wall segments showed normal motion. Findings: Study Quality * Technically adequate exam. ECG Findings * Sinus rhythm with BBB. Left Ventricle * LVEF 45-50%. * Normal LV chamber size, wall thickness and mildly reduced function. * Mild segmental left ventricular systolic dysfunction. * Atypical septal motion consistent with bundle branch block. * Mild left ventricular diastolic dysfunction. Right Ventricle * Normal right ventricular structure and function. Left Atrium * Moderately dilated left atrium. Right Atrium * Normal right atrial size. Aortic Valve * Trileaflet aortic valve with normal function. * No aortic regurgitation. * No aortic stenosis. Mitral Valve * Normal mitral valve structure and function. * No mitral stenosis. * Trace mitral regurgitation. Tricuspid Valve * Normal tricuspid valve structure and function. * No tricuspid regurgitation. * Unable to estimate RVSP due to lack of TR jet. Pulmonic Valve * Pulmonic valve not well visualized. Aorta * Normally sized aortic root. Pericardium * The pericardium appears normal. IVC * Normal IVC dimensions and inspiratory collapse. Pulmonary Artery * Normal visualized portions of the main pulmonary artery. Interatrial Septum * No evidence of PFO by color Doppler. Consult Discharge Plan - Plan Referrals: Nico Toledo MD [Partnered Physician] -
[2018-01-06] MEDS: 0.9 % Sodium Chloride 1,000 ML IVC SCH ×2 (01:54→15:26)
[2018-01-06] MEDS: *HR* Heparin 5,000 UNIT/ML VIAL SQ SCH ×2 (05:03→17:30)
--- NOTE | 2018-01-06 07:02 | Internal Med Progress Note ---
Date of Encounter: 01/06/18 Time of Encounter: 07:01 - Assessment and plan (1) Acute cerebral infarction Current Visit: Yes Status: Acute Assessment and plan: Acute CVA, presented with right-sided deficits including right arm weakness, numbness and tingling of right hand strength back to baseline, reporting no numbness or tingling this morning MRI confirming CVA with multiple small acute to subacute embolic infarcts bilaterally Stroke protocol implemented; continue neuro checks Neurology following in consultation; upon discharge patient should have follow- up with neurology Cardioembolic event versus atheromatous emboli Consult to vascular surgery-spoke with Dr. Wells who will see in consultation, to consider whether or not CTA or MRA would be beneficial; awaiting further recommendations Bilateral carotid Doppler studies revealed Rt proximal ICA 60-79% stenosis, Mid ICA 40-59% stenosis, Distal ICA 60-79% stenosis, Lt 40-59% Patient to have a transesophageal echocardiogram on Sunday to rule out plaquing in aortic arch -History of renal disease, consider candidacy for contrast study -Continue 75 mg daily Plavix; patient should be discharged on Plavix -Aggressive management of HTN, DM and HLD -Continue simvastatin will need a new prescription at discharge (2) Weakness of right hand Current Visit: Yes Status: Acute Assessment and plan: See above (3) Coronary artery disease Current Visit: Yes Status: Chronic Assessment and plan: CAD history Continue aspirin, Lipitor, beta nadine Troponins negative 3, ECG reviewed by me with no concerns for ischemic changes TTE-EF 45-50%, normal LV size, wall thickness and mildly reduced function, mild segmental left ventricular systolic dysfunction, atypical septal motion consistent with BBB, , mild left ventricular diastolic dysfunction, normal right ventricular structure and function, no significant valvular dysfunction denies any Continues to deny chest pain throughout the stay Remain on telemetry Qualifiers: Coronary Disease-Associated Artery/Lesion type: [place] artery [place] vs. 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 Diabetes mellitus complication status: with kidney complications Diabetes mellitus complication detail: with chronic kidney disease Chronic kidney disease stage : stage 3 (moderate) Qualified Code(s): E11.22 - Type 2 diabetes mellitus with diabetic chronic kidney disease; N18.3 - Chronic kidney disease, stage 3 ( moderate); Z79.4 - USP (current) use of insulin (5) Essential hypertension Current Visit: Yes Status: Chronic Assessment and plan: History of hypertension, stable BP continuing to improve Continue current anti-HTN regimen Monitor closely, add adjunct therapy PRN Continue SHARON inhibitor and beta nadine (6) Gastroesophageal reflux disease Current Visit: Yes Status: Chronic Assessment and plan: Continue H2 Qualifiers: Esophagitis presence: esophagitis presence not specified Qualified Code(s) : K21.9 - Gastro-esophageal reflux disease without esophagitis (7) Acute kidney injury superimposed on CKD Current Visit: Yes Status: Acute Assessment and plan: DEVON superimposed on Chronic kidney disease stage III. Today Sr Cr continue closely monitor renal function Avoid nephrotoxins; continue to hold HCTZ Increase oral intake Should renal function worsen consider consult to nephrology - Time Spent With Patient Total time spent is greater than 50% in coordination of care (as documented) at patient's floor/unit and/or counseling patient: 25 - 35 minutes - Subjective Interval history: Patient here for CVA. No acute changes overnight. Reports that strength, numbness and tingling in right hand is continuing to improve - Constitutional Vitals: Temp Pulse Resp BP Pulse Ox 97.9 F 64 19 133/55 95 01/06/18 03:18 01/06/18 03:18 01/06/18 03:18 01/06/18 03:18 01/06/18 03:18 General appearance: Present: cooperative, mild distress, A&O X 3, answers questions appropriately - Head Head exam: Present: atraumatic, normocephalic - Eye Eye exam: Present: PERRL, conjuntiva pink, sclera anicteric Pupils: Present: PERRL - Neck Neck exam general surgery: Present: supple, trachea midline. Absent: lymphadenopathy - Respiratory Respiratory exam: Present: CTAB. Absent: accessory muscle use, rales, rhonchi, wheezes - Cardiovascular Cardiovascular exam: Present: RRR, +S1, +S2. Absent: diastolic murmur, gallop, rubs, systolic murmur - GI/Abdominal GI/Abdominal exam: Present: normal bowel sounds, soft, no peritoneal signs. Absent: distended, tenderness - Extremities Exam Extremities exam: Present: warm, radial pulses palpable and symmetrical. Absent : calf tenderness, cyanotic, pedal edema - Neurological Exam Neurological exam: Present: CN II-XII intact, oriented X3, no focal deficits. Absent: pronater drift, facial droop, speech deficit - Expanded Neurological Exam Neurological exam expanded: Absent: expressive aphasia, receptive aphasia Patient oriented to: Present: person, place Speech: Present: fluid speech Cranial Nerves: EOM's intact PM: Normal, gag reflex PM: Normal Neuro motor strength exam: LUE: 5, RUE: 5, LLE: 5, RLE: 5 Coma Scale Eye Opening: Spontaneous Coma Scale Motor Response: Obeys Commands Coma Scale Verbal Response: Oriented Coma Scale Total: 15 - Skin Skin exam: Present: dry, intact Internal Medicine: Result - Labs CBC & Chem 7: 01/04/18 06:42 01/04/18 06:42 - Impressions Impressions Cervical Spine MRI 01/03/18 21:08 IMPRESSION: Disc and osteophytes result in moderate stenosis of the thecal sac and narrowing of the neural foramina at C4-5, C5-6, and C6-7 as discussed above. D/ / 01/04/2018 14:48:02 Ju Paredes MD / ankit Interpreting Provider: Ju Paredes MD Consult Discharge Plan - Plan Referrals: Nico Toledo MD [Partnered Physician] -
[2018-01-06] MEDS: Famotidine 20 MG TABLET PO SCH ×2 (08:59→15:25)
[2018-01-06] MEDS: Insulin LISPRO 300 UNITS/3 ML VIAL SQ SCH ×4 (09:02→20:46)
[2018-01-06 09:03] LABS: BUN/Creatinine Ratio 18 (6-26); Blood Urea Nitrogen 24 mg/dL (8-23); Carbon Dioxide 25 mEq/L (23-29); Chloride 111 mEq/L (98-107); Glucose 144 mg/dL (70-105); Sodium 140 mEq/L (136-145); eGFR For African Americans > 60 (> 60); eGFR For Non-African Americans 54 (> 60)
[2018-01-06 09:04] LABS: Calcium 7.9 mg/dL (8.6-10.3); Osmolality,Calculated 297 (280-300)
[2018-01-06] MEDS: Acetaminophen 325 MG TABLET PO PRN ×3 (09:07→21:50)
[2018-01-06] MEDS: Fluticasone Propionate Nasal 50 MCG/SPRAY BOTTLE NS SCH (09:07)
--- NOTE | 2018-01-06 16:28 | Vascular/Endovasc Consult Note ---
Date of Encounter: 01/06/18 Time of Encounter: 15:30 Assessment and Plan (1) Carotid artery stenosis Current Visit: Yes Status: Acute The patient has bilateral carotid artery stenosis. However on the basis of the patient's symptoms these do not appear to be symptomatic. Because of the bilateral nature of the strokes seen on the MRI this would suggest either a cardiac source or from the area of the ascending aortic position. Therefore at this point I do not recommend carotid angiography. I would suggest that the patient proceed with the ADRIÁN tomorrow as planned. If the ADRIÁN shows no significant lesion or an explanation for the patient's bilateral cerebral infarcts then a CT angiogram may be obtained to search for another cause. His BUN and creatinine are much improved today from admission though he would still need pre-contrast exposure prophylaxis with fluid and Mucomyst and bicarbonate. I will be out of town for the next 2 days. If you have any questions please contact Dr. Elise. Qualifiers: Laterality: bilateral Qualified Code(s): I65.23 - Occlusion and stenosis of bilateral carotid arteries (2) Acute kidney injury superimposed on CKD Current Visit: Yes Status: Acute Patient's renal function has significantly improved. Serum creatinine is now 1.3 down from 2.0. With appropriate prophylaxis contrast may be given to the patient should this become necessary if the ADRIÁN demonstrates no significant findings. (3) Acute cerebral infarction Current Visit: Yes Status: Acute Bilateral cerebral infarcts that appear to be acute. Presentation does not fit an etiology from the carotid system at this time. Recommend proceeding with ADRIÁN and then if this is a negative exam then obtained a CT angiogram of the aorta and cervical carotid system. - History of Present Illness Consult date: 01/06/18 Consult reason: Bilateral strokes and carotid stenosis Chief complaint: Right upper extremity weakness and numbness History of present illness: Mr. Paredes is a 72 year old male Who was seen in consultation today for evaluation of carotid artery issues. He was admitted to the hospital because of right upper extremity numbness and weakness. He went on to have a number of imaging studies during this hospitalization. He was found to have bilateral cerebral embolic events that appear to be acute to subacute. He had had a carotid artery duplex scan which indicated a 60-79% right internal carotid artery stenosis and a 40-59% left internal carotid artery stenosis. An MRI demonstrated the bilateral cerebral processes. Because he was originally found to be in chronic kidney disease with a serum creatinine of approximately 2 contrast was not wanted to be given to the patient. Vascular surgery was asked to make, as to how to proceed from here. The patient's past history is significant for coronary artery disease and myocardial infarction and congestive heart failure. He also has a history of hypertension and diabetes. There is some question that the patient would need an AICD though this was never placed. Since his hospitalization the patient states that the right upper extremity symptoms are significantly improved. He has some chronic right hand issues due to an injury that occurred 16 years ago. He states he is not aware that he had carotid artery disease diagnosed in the past. Past Med Surg Social Fam HX - Past Medical History Medical history: arthritis, diabetes, hypertension, myocardial infarction Psychiatric history: anxiety, depression - Past Surgical History Additional surgical history: Back sx, ilateral knee sx, CARDIAC STENTS - Social History Smoking Status: Former smoker Smokeless Tobacco Status: No Alcohol use: none Drug use: none - Family History Father Adopted: [place]: [place] Family Member Ethnicity: Non- Living Status: Age at : 71 Cause of : HEART PROBLEMS Hx Family Cardiac Disorders: Yes (HTN) Hx Family Respiratory Disorders: Yes (ASTHMA) Hx Family Cancer: No Hx Family GI Disorders: No Hx Family Genitourinary Disorders: No Hx Family Endocrine Disorder: No Hx Family Musculoskeletal Disorders: No Hx Family Neuromuscular Disorders: No Hx Family Neurologic Disorders: Yes (POSSIBLE STROKE) Hx Family HEENT Disorders: No Hx Family Autoimmune Disorders: No Hx Family Reproductive Disorders: No Hx Family Psychosocial Disorders: No Hx Family Medical Disorders: No Medications and Allergies Carvedilol [Coreg] 6.25 mg PO BIDWM 10/08/16 [History] Hydrochlorothiazide [Microzide] 12.5 mg PO DAILY 10/08/16 [History] Aspirin [Lo-Dose Aspirin EC] 81 mg PO DAILY 11/09/17 [History] Atorvastatin [Lipitor] 10 mg PO HS 11/09/17 [History] Famotidine [Heartburn Prevention] 20 mg PO BID 11/09/17 [History] Fluticasone Propionate Nasal [Flonase] 1 spray NS DAILY 11/09/17 [History] Insulin LISPRO [Humalog Kwikpen U-100] 10 unit SQ DAILY 11/09/17 [History] Lisinopril [Zestril] 10 mg PO DAILY 11/09/17 [History] Paroxetine [Paxil] 30 mg PO DAILY 01/03/18 [History] 3 Allergy/AdvReac Type Severity Reaction Status Date / Time duloxetine [From Cymbalta] Allergy Chest Pain Verified 07/29/17 13:46 All Systems Review: The remainder of the systems were reviewed and are negative Exam Vital Signs, Last 4 Hours Temp Pulse Resp BP Pulse Ox 01/06/18 15:46 99.8 F H 71 14 143/72 97 General: Present: Conversant, No Apparent Distress, Well developed, Well nourished HEENT: Present: Atraumatic, Normocephaly, Trachea midline, Pupils equal Neck: Present: Right Carotid bruit. Absent: JVD, Left Carotid bruit, Midline deformity, Tracheal deviation, Thyromegaly Cardiac: Present: Reg Rate and Rhythm, Normal S1 and S2, No Murmur Lungs: Present: Normal Breath Sounds Neuro: Present: Alert and responsive, No focal deficits noted, Cranial nerves grossly intact, Motor nerves grossly intact, Sensory nerves grossly intact Abdomen: Present: Soft, Non-tender. Absent: Masses Vascular: Present: Pulse, normal (Upper extremity pulses are 2+ and symmetrical) Skin: Present: No rashes noted on visualized skin Consult Discharge Plan - Plan Referrals: Nico Toledo MD [Partnered Physician] -
--- NOTE | 2018-01-06 21:34 | Electrocardiograph Report ---
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
[2018-01-06] MEDS ORDERED: Ondansetron 4 MG/2 ML VIAL IVP ONE (21:36)
[2018-01-07] MEDS: Acetaminophen 325 MG TABLET PO PRN ×3 (04:09→20:25)
[2018-01-07] MEDS: 0.9 % Sodium Chloride 1,000 ML IVC SCH ×2 (04:10→08:23)
[2018-01-07] MEDS: *HR* Heparin 5,000 UNIT/ML VIAL SQ SCH ×2 (05:22→16:24)
[2018-01-07 07:09] LABS: Potassium 4.1 mEq/L (3.5-5.1)
[2018-01-07] MEDS: Insulin LISPRO 300 UNITS/3 ML VIAL SQ SCH ×4 (07:40→20:43)
[2018-01-07] MEDS: Famotidine 20 MG TABLET PO SCH ×2 (08:23→13:18)
[2018-01-07] MEDS ORDERED: 0.9 % Sodium Chloride 500 ML IVC ONE (09:27)
[2018-01-07] MEDS ORDERED: Tetracaine/Benzocaine/Butamben 200MG/SPRAY (100SPY/BOT) MM ONE (09:27)
[2018-01-07] MEDS: Fluticasone Propionate Nasal 50 MCG/SPRAY BOTTLE NS SCH (09:59)
[2018-01-07] MEDS: *HR* FentaNYL (PF) 100 MCG/2 ML VIAL IVP PRN ×5 (10:10→10:30)
[2018-01-07] MEDS: *HR* Midazolam HCl 5 MG/5 ML VIAL IVP PRN ×5 (10:10→10:30)
[2018-01-07] MEDS ORDERED: *HR* Morphine 2 MG/ML SYRINGE IVP ONE (14:46)
--- NOTE | 2018-01-07 15:36 | Neurology Progress Note ---
Date of Encounter: 01/07/18 Time of Encounter: 15:34 Assessment and Plan (1) Acute cerebral infarction Current Visit: Yes Status: Acute The etiology of this event remains unknown. ADRIÁN did not reveal an embolic source. Will likely rule this as cryptogenic. Recommend maintaining Plavix 75 mg daily, also recommend aggressive management of other risk factors which include hypertension, diabetes mellitus, hyperlipidemia. Pt. stable neurologically. Will reevaluate at your request. Subjective Interval history: Chart was reviewed, the patient was seen and examined. Case was discussed with the hospitalist. Patient is currently being assessed for chest pain. He denies any new neurologic symptoms. Denies any numbness tingling or weakness of the face arms or legs. Transesophageal echocardiogram today was negative for evidence of an embolic source he was seen and evaluated by vascular for the asymptomatic right ICA stenosis. They recommended following up with another carotid Doppler test in a year. Objective - Constitutional Vitals: Temp Pulse Resp BP Pulse Ox 97.8 F 82 16 153/77 95 01/07/18 15:12 01/07/18 15:11 01/07/18 14:41 01/07/18 15:11 01/07/18 15:11 - Neurological Exam Motor Examination: Present: full strength in all major muscle groups Motor examination - right side: 5/5: deltoids, biceps, triceps, case sealer, hip flexors, tibialis Anterior, quadriceps, toe extension (EHL), plantarflexion Motor examination - left side: 5/5: deltoids, biceps, triceps, wrist flexion, wrist extension, hip flexors, case sealer, quadriceps, tibialis Anterior, toe extension (EHL), plantarflexion Sensation intact: Present: intact Reflex and gait examination: intact Mental Status Examination: Present: awake, alert, oriented to person, oriented to place, oriented to time, follows commands appropriately, answers questions appropriately, no agnosia, no aphasia, no aproxia Cranial nerve examination: Present: PERRL, EOMI, visual lieberman intact, corneal reflexes brisk symmetrically, sensory to face intact, mastication intact, no facial asymmetry is present, no dysarthria, hearing is intact symmetrically, soft palate elevates bilaterally upon phonation, gag reflex intact, flexes SCM and trapezius muscles symmetrically with full power, tongue protrudes midline, no atrophy or facial fasiculations present Cerebellar examination: Present: no dysmetria, performs finger to nose and heel to [place] symmetrically without ataxia, no gait ataxia, no truncal ataxia, no difficulty with rapid alternating movements Results - Laboratory Findings CBC and BMP: 01/04/18 06:42 01/07/18 05:43 Abnormal lab findings: Abnormal lab results RDW 14.6 % (11.5-14.5) H 01/04/18 06:42 Chloride 112 mEq/L (98-107) H 01/07/18 05:43 Carbon Dioxide 21 mEq/L (23-29) L 01/07/18 05:43 BUN 24 mg/dL (8-23) H 01/07/18 05:43 Creatinine 1.41 mg/dL (0.70-1.30) H 01/07/18 05:43 Est GFR (Non-Af Amer) 49 (> 60) L 01/07/18 05:43 Glucose 130 mg/dL (70-105) H 01/07/18 05:43 POC Glucose 134 mg/dL (70-99) H 01/06/18 20:10 Hemoglobin A1c 7.9 % (-5.6) H 01/03/18 18:55 Calcium 8.0 mg/dL (8.6-10.3) L 01/07/18 05:43 Triglycerides 308 mg/dL (< 150) H 01/04/18 06:42 Cholesterol 225 mg/dL (< 200) H 01/04/18 06:42 LDL Cholesterol, Calc 134 mg/dL (0-99) H 01/04/18 06:42 VLDL Cholesterol, Calc 62 mg/dL (< 31) H 01/04/18 06:42 HDL Cholesterol 29 mg/dL (40-59) L 01/04/18 06:42 Cholesterol/HDL Ratio 7.8 (0-4.9) H 01/04/18 06:42 Consult Discharge Plan - Plan Referrals: Nico Toledo MD [Partnered Physician] - 02/05/18 3:15 pm
--- NOTE | 2018-01-07 15:38 | Internal Med Progress Note ---
Date of Encounter: 01/07/18 Time of Encounter: 17:00 - Assessment and plan (1) NSTEMI (non-ST elevated myocardial infarction) Current Visit: Yes Status: Acute Assessment and plan: Patient developed chest pain this afternoon after ADRIÁN Chest pain is left-sided with diaphoresis and shortness of breath EKG obtained similar compared to prior, no concerns for new ischemic changes 324 ASA given, 40 mg statin given, cardiology consulted Serial troponins obtained, 0.07, 0.27,-continue to trend troponins- cardiology notified Spoke with Dr. Dominique regarding potential need to start heparin drip in the setting of recent CVA; okay to start heparin if needed starting nitroglycerin drip and heparin gtt monitor h&h daily, as well as PTT, PT/INR Patient is high risk for LHC as he is here for acute bilateral cerebral vasculature CVA Remains hemodynamically stable, continuing to have left-sided chest pain Continuous telemetry (2) Acute cerebral infarction Current Visit: Yes Status: Acute Assessment and plan: Acute CVA, presented with right-sided deficits including right arm weakness, numbness and tingling of right hand strength back to baseline, reporting no numbness or tingling this morning MRI confirming CVA with multiple small acute to subacute embolic infarcts bilaterally Stroke protocol implemented; continue neuro checks Neurology following in consultation; upon discharge patient should have follow- up with neurology Cardioembolic event versus atheromatous emboli Bilateral carotid Doppler studies revealed Rt proximal ICA 60-79% stenosis, Mid ICA 40-59% stenosis, Distal ICA 60-79% stenosis, Lt 40-59% -History of renal disease, consider candidacy for contrast study -Continue 75 mg daily Plavix; patient should be discharged on Plavix -Aggressive management of HTN, DM and HLD -Continue simvastatin will need a new prescription at discharge (3) Weakness of right hand Current Visit: Yes Status: Acute Assessment and plan: See above (4) Coronary artery disease Current Visit: Yes Status: Chronic Assessment and plan: CAD history Continue aspirin, Lipitor, beta nadine Remain on telemetry Qualifiers: Coronary Disease-Associated Artery/Lesion type: [place] artery [place] vs. transplanted heart: [place] heart Associated angina: without angina Qualified Code(s): I25.10 - Atherosclerotic heart disease of [place] coronary artery without angina pectoris (5) Diabetes mellitus, type 2 Current Visit: Yes Status: Chronic Assessment and plan: History of type 2 diabetes, A1c 7.9 poorly controlled Blood glucose stable Continue sliding scale insulin coverage and Diabetic diet Monitor and adjust sliding scale as necessary Discussed diabetic diet and lifestyle modifications Qualifiers: Diabetes mellitus custodial insulin use: with custodial use Diabetes mellitus complication status: with kidney complications Diabetes mellitus complication detail: with chronic kidney disease Chronic kidney disease stage : stage 3 (moderate) Qualified Code(s): E11.22 - Type 2 diabetes mellitus with diabetic chronic kidney disease; N18.3 - Chronic kidney disease, stage 3 ( moderate); Z79.4 - snf (current) use of insulin (6) Essential hypertension Current Visit: Yes Status: Chronic Assessment and plan: History of hypertension, stable BP continuing to improve Continue current anti-HTN regimen Monitor closely, add adjunct therapy PRN Continue SHARON inhibitor and beta nadine (7) Gastroesophageal reflux disease Current Visit: Yes Status: Chronic Assessment and plan: Continue H2 Qualifiers: Esophagitis presence: esophagitis presence not specified Qualified Code(s) : K21.9 - Gastro-esophageal reflux disease without esophagitis (8) Acute kidney injury superimposed on CKD Current Visit: Yes Status: Acute Assessment and plan: DEVON superimposed on Chronic kidney disease stage III. Today Sr Cr 1.41, stable, improving compared to labs on admission continue closely monitor renal function Avoid nephrotoxins; continue to hold HCTZ Increase oral intake Should renal function worsen consider consult to nephrology - Time Spent With Patient Total time spent is greater than 50% in coordination of care (as documented) at patient's floor/unit and/or counseling patient: 25 - 35 minutes - Subjective Interval history: Patient here for CVA. Now reporting chest pain this afternoon following a ADRIÁN. Chest pain is left-sided without radiation, or nausea. Reporting diaphoresis. Right upper extremity weakness, numbness/tingling resolved - Constitutional Vitals: Temp Pulse Resp BP Pulse Ox 97.8 F 82 16 153/77 95 01/07/18 15:12 01/07/18 15:11 01/07/18 14:41 01/07/18 15:11 01/07/18 15:11 General appearance: Present: cooperative, mild distress, A&O X 3, answers questions appropriately - Head Head exam: Present: atraumatic, normocephalic - Eye Eye exam: Present: PERRL, conjuntiva pink, sclera anicteric Pupils: Present: PERRL - Neck Neck exam general surgery: Present: supple, trachea midline. Absent: lymphadenopathy - Respiratory Respiratory exam: Present: CTAB. Absent: accessory muscle use, rales, rhonchi, wheezes - Cardiovascular Cardiovascular exam: Present: RRR, +S1, +S2. Absent: diastolic murmur, gallop, rubs, systolic murmur - GI/Abdominal GI/Abdominal exam: Present: normal bowel sounds, soft, no peritoneal signs. Absent: distended, tenderness - Extremities Exam Extremities exam: Present: warm, radial pulses palpable and symmetrical. Absent : calf tenderness, cyanotic, pedal edema - Neurological Exam Neurological exam: Present: CN II-XII intact, oriented X3, no focal deficits. Absent: pronater drift, facial droop, speech deficit - Skin Skin exam: Present: dry, intact Internal Medicine: Result - Labs CBC & Chem 7: 01/04/18 06:42 01/07/18 05:43 Labs: BMP 01/07/18 05:43 Sodium 140 Potassium 4.1 Chloride 112 H Carbon Dioxide 21 L BUN 24 H Creatinine 1.41 H Glucose 130 H Calcium 8.0 L Consult Discharge Plan - Plan Referrals: Nico Toledo MD [Partnered Physician] - 02/05/18 3:15 pm
[2018-01-07] MEDS ORDERED: Naloxone 0.4 MG/ML INJ IVP PRN (16:09)
[2018-01-07] MEDS ORDERED: Nitroglycerin 0.4 MG TAB.SUBL SL PRN (16:16)
[2018-01-07] MEDS: Aspirin 81 MG TAB.CHEW PO SCH (16:23)
--- NOTE | 2018-01-07 16:56 | Electrocardiograph Report ---
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
[2018-01-07] MEDS ORDERED: *HR* Heparin 5,000 UNIT/ML VIAL IVP ONE (19:00)
[2018-01-07] MEDS ORDERED: Nitroglycerin 25 MG/250 ML INFUS..BTL IVC SCH (19:00)
[2018-01-07] MEDS ORDERED: Heparin 25,000 UNIT/500 ML D5W 25,000 UNIT/500 ML BAG IVC SCH (19:00)
[2018-01-07] MEDS ORDERED: *HR* Heparin 5,000 UNIT/ML VIAL IVP PRN ×2 (19:00)
[2018-01-07 19:43] LABS: Hematocrit 37.2 % (37.5-50.1); Hemoglobin 12.4 g/dL (12.9-16.9); Mean Corpuscular HGB Conc 33.3 g/dL (31.6-35.5); Mean Corpuscular Hemoglobin 29.7 pg (28.0-33.3); Mean Platelet Volume 11.7 fL (9.4-12.4); Platelet Count 183 K/mcL (140-400); Red Blood Count 4.18 M/mcL (4.19-5.50); Red Cell Distribution Width 14.7 % (11.5-14.5)
[2018-01-07 19:48] LABS: Activated Partial Thrombo Time 35.9 Seconds (26.0-36.0)
--- NOTE | 2018-01-07 22:47 | Event Note ---
Date of Encounter: 01/07/18 Time of Encounter: 22:43 Trop is elevated up to 2.17, currently on heparin and nitro drip and pain free. Ekg ordered. Patient has another trop ordered for 0400.
--- NOTE | 2018-01-07 23:24 | Vascular/Endovas Progress Note ---
Date of Encounter: 01/07/18 Time of Encounter: 13:05 - Assessment and plan (1) Acute cerebral infarction Current Visit: Yes Status: Acute The patient hs sustained bilateral hemispheric infarcts. His echo reveals aortic plaque. Although he has carotid stenosis, the bilateral nature of his CVA is consistent with a cardiac or proximal aortic source. No intramural thrombus is identified. At this time, recommend that the patient take Clopidogrel 75mg daily. He may follow-up with Dr. Wells after discharge. (2) Essential hypertension Current Visit: Yes Status: Chronic (3) Carotid artery stenosis Current Visit: Yes Status: Acute Qualifiers: Laterality: bilateral Qualified Code(s): I65.23 - Occlusion and stenosis of bilateral carotid arteries (4) Diabetes mellitus, type 2 Current Visit: Yes Status: Chronic Qualifiers: Diabetes mellitus manager long term care insulin use: with shelter use Diabetes mellitus complication status: with kidney complications Diabetes mellitus complication detail: with chronic kidney disease Chronic kidney disease stage : stage 3 (moderate) Qualified Code(s): E11.22 - Type 2 diabetes mellitus with diabetic chronic kidney disease; N18.3 - Chronic kidney disease, stage 3 ( moderate); Z79.4 - alf (current) use of insulin - Subjective Interval history: The patient denies any acute events overnight. He denies recurrent symptoms of CVA, TI or amaurosis fugax. Vital Signs, Last 4 Hours Temp Pulse Resp BP Pulse Ox 01/07/18 23:06 98.3 F 76 16 131/71 98 01/07/18 22:30 120/65 01/07/18 21:08 142/76 01/07/18 20:28 138/72 - Physical Examination General: Present: Conversant, No Apparent Distress Cardiac: Present: Reg Rate and Rhythm Lungs: Present: Normal Breath Sounds Neuro: Present: Alert and responsive, No focal deficits noted, Motor nerves grossly intact, Sensory nerves grossly intact Vascular: Present: Normal capillary refill. Absent: Cyanosis, Edema Abdomen: Present: Soft, Non-tender. Absent: Masses Results 01/07/18 19:13 01/07/18 05:43 Lab Results, Last 24 hours 01/07/18 01/07/18 01/07/18 19:13 19:13 21:56 WBC 9.4 Hgb 12.4 L Hct 37.2 L Plt Count 183 INR 1.0 APTT 35.9 Troponin I 2.17 H* - Imaging / Other Tests Echo: report reviewed (No intracardiac source for embolus. There is Grade IV plaquing of the descending thoracic aorta. Just below the aortic arch is a 1.1 x 0.8 cm protruding nonmobile atheroma. No interatrial shunt with saline contrast injection.) Consult Discharge Plan - Plan Referrals: Nico Toledo MD [Partnered Physician] - 02/05/18 3:15 pm
[2018-01-08] MEDS: 0.9 % Sodium Chloride 1,000 ML IVC SCH ×2 (00:25→10:04)
[2018-01-08 03:14] LABS: Calcium 8.5 mg/dL (8.6-10.3)
[2018-01-08 03:24] LABS: Activated Partial Thrombo Time 137.9 Seconds (26.0-36.0)
[2018-01-08 03:25] LABS: Heparin anti-factor XA UFH 0.98 IU/mL (0.30-0.70)
[2018-01-08] MEDS ORDERED: *HR* LORazepam 2 MG/ML VIAL IVP ONE (05:03)
[2018-01-08] MEDS ORDERED: *HR* FentaNYL (PF) 100 MCG/2 ML VIAL IVP ONE (05:04)
[2018-01-08] MEDS: Insulin LISPRO 300 UNITS/3 ML VIAL SQ SCH ×3 (07:16→16:18)
[2018-01-08] MEDS: Famotidine 20 MG TABLET PO SCH ×2 (08:35→16:47)
[2018-01-08] MEDS: Fluticasone Propionate Nasal 50 MCG/SPRAY BOTTLE NS SCH (08:36)
[2018-01-08] MEDS: Aspirin 81 MG TAB.CHEW PO SCH (08:36)
--- NOTE | 2018-01-08 09:21 | Cardiology Consult Note ---
Date of Encounter: 01/08/18 Time of Encounter: 09:13 Assessment and Plan (1) NSTEMI (non-ST elevated myocardial infarction) Current Visit: Yes Status: Acute LHC not recommended at this time given large thoracic aortic atheroma noted on ADRIÁN. - cont medical tx at present - will obtain repeat ECHO (limited) - will continue to monitor pt over subsequent days - further recommendations to follow Discussion w patient/family: The assessment and plan as outlined above was discussed with the patient and/or family members who expressed understanding and agreement. All questions were answered. Thank you for involving us in the care of your patient. Please call with any questions. History of Present Illness Consult date: 01/08/18 (Will Prince) Consult reason: Chest pain, EKG changes, elevated troponin -- NSTEMI History of present illness: Mr. Paredes is a 72 year old male with PMH of CAD ([facility] in 2003 with stent per patient), DM-II, and HTN admitted for acute CVA. Cardiology consult placed for NSTEMI. Symptomatic with new EKG changes and elevated troponins on 01/07/18. Patient states developed left sided chest pain in the afternoon. Describes this pain as a severe pressure that does not radiate and was constant. Pain lasted for about 6 hours. Denies having had similar pain before. During episode, patient states was diaphragmatic and nauseous. Denied any syncope, lightheadedness, palpitations, were shortness of breath, nausea, or pedal edema. Initial troponin was 0.07; remainder of trend0.27, 2.17, 1.68, and 1.80 (0400 this AM). Patient did have preceding TTE which demonstrated great for plaque in the descending thoracic aorta. Also had transthoracic echo on 01/04/2018 , dmonstrating LVEF 45 to 50%, mild diastolic dysfunction, and septal wall motion abnormalities consistent with bundle branch block.Patient is currently on heparin infusion and has been on a short trip which is currently climbed. Patient is presently asymptomatic and hemodynamically stable. Past Med Surg Social Fam HX - Past Medical History Source: patient Medical history: arthritis, coronary artery disease, diabetes, hypertension, myocardial infarction Psychiatric history: anxiety, depression - Past Surgical History Surgical History: angioplasty/stent ([facility] with stent post [place] in 2003) Additional surgical history: Back sx, ilateral knee sx, CARDIAC STENTS - Social History Smoking Status: Former smoker Smokeless Tobacco Status: No Alcohol use: none Drug use: none - Family History Father Adopted: [place]: [place] Family Member Ethnicity: Non- Living Status: Age at : 71 Cause of : HEART PROBLEMS Hx Family Cardiac Disorders: Yes (HTN) Hx Family Respiratory Disorders: Yes (ASTHMA) Hx Family Cancer: No Hx Family GI Disorders: No Hx Family Genitourinary Disorders: No Hx Family Endocrine Disorder: No Hx Family Musculoskeletal Disorders: No Hx Family Neuromuscular Disorders: No Hx Family Neurologic Disorders: Yes (POSSIBLE STROKE) Hx Family HEENT Disorders: No Hx Family Autoimmune Disorders: No Hx Family Reproductive Disorders: No Hx Family Psychosocial Disorders: No Hx Family Medical Disorders: No Medications and Allergies Carvedilol [Coreg] 6.25 mg PO BIDWM 10/08/16 [History] Hydrochlorothiazide [Microzide] 12.5 mg PO DAILY 10/08/16 [History] Aspirin [Lo-Dose Aspirin EC] 81 mg PO DAILY 11/09/17 [History] Atorvastatin [Lipitor] 10 mg PO HS 11/09/17 [History] Famotidine [Heartburn Prevention] 20 mg PO BID 11/09/17 [History] Fluticasone Propionate Nasal [Flonase] 1 spray NS DAILY 11/09/17 [History] Insulin LISPRO [Humalog Kwikpen U-100] 10 unit SQ DAILY 11/09/17 [History] Lisinopril [Zestril] 10 mg PO DAILY 11/09/17 [History] Paroxetine [Paxil] 30 mg PO DAILY 01/03/18 [History] 3 Allergy/AdvReac Type Severity Reaction Status Date / Time duloxetine [From Cymbalta] Allergy Chest Pain Verified 07/29/17 13:46 All Systems Review: Denies fevers, chills, sweats, syncope, lightheadedness, headache, visual disturbances, palpitations, worsening shortness of breath, vomiting, abdominal discomfort, diarrhea, pedal edema, or rash. Physical Examination Vital Signs, Last 4 Hours Temp Pulse Resp BP Pulse Ox 01/08/18 08:40 94 01/08/18 08:39 98 14 131/70 94 01/08/18 08:33 98 14 130/40 97 01/08/18 07:14 99 97 120/71 06/05/18 07:09 98.4 F 91 14 119/74 97 CONSTITUTIONAL: Alert and oriented X3, well-nourished, well appearing, in no apparent distress HEAD: Normocephalic; atraumatic. EYES: PER (3mm b/l), no scleral icterus, no drainage, no conjunctival injection NOSE: The nose is normal in appearance without rhinorrhea; has oxymask in place Oropharynx: pink/moist, no tonsillar edema/erythema/exudates RESP: NRD without use of accessory musculature, oxymask off during exam, CTA b/ l with no wheezes/rales/rhonchi CARD: Regular rhythm, without murmurs, rubs, or gallop ABD: grossly normal, soft, non-tender SKIN: normal appearance, no pallor/diaphoresis, mottling, jaundice, cyanosis EXT: Rad pulses 2+ and symmetrical; no pedal edema; no other lesions seen PSYCH: appropriate mood/affect Results 01/07/18 19:13 01/08/18 02:43 Lab Results 01/07/18 01/07/18 01/07/18 19:13 19:13 21:56 WBC 9.4 Hgb 12.4 L Hct 37.2 L Plt Count 183 INR 1.0 APTT 35.9 Sodium Potassium Chloride Carbon Dioxide BUN Creatinine Glucose Calcium Troponin I 2.17 H* 01/08/18 01/08/18 01/08/18 02:43 02:43 02:43 WBC Hgb Hct Plt Count INR APTT 137.9 H* D Sodium 139 Potassium 3.9 4.0 Chloride 110 H Carbon Dioxide 19 L BUN 21 Creatinine 1.41 H Glucose 165 H Calcium 8.5 L Troponin I 01/08/18 01/08/18 02:43 04:14 WBC Hgb Hct Plt Count INR APTT Sodium Potassium Chloride Carbon Dioxide BUN Creatinine Glucose Calcium Troponin I 1.68 H* 1.80 H* Consult Discharge Plan - Plan Referrals: Nico Toledo MD [Partnered Physician] - 02/05/18 3:15 pm
[2018-01-08] MEDS ORDERED: Ondansetron ODT 4 MG TAB.RAPDIS SL ONE (12:25)
[2018-01-08] MEDS ORDERED: hydrALAZINE 25 MG TABLET PO ONE (12:25)
[2018-01-08] MEDS ORDERED: hydrOXYzine pamoate 25 MG CAPSULE PO ONE (12:33)
--- NOTE | 2018-01-08 16:44 | Electrocardiograph Report ---
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
--- NOTE | 2018-01-08 16:46 | Electrocardiograph Report ---
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
[2018-01-08] MEDS ORDERED: Perflutren Lipid Microsphere 1.3 ML in 0.9 % Sodium Chloride 8.7 ML IVP ONE (16:52)
--- NOTE | 2018-01-08 18:42 | Internal Med Progress Note ---
Date of Encounter: 01/08/18 Time of Encounter: 09:35 - Assessment and plan (1) Weakness of right hand Current Visit: Yes Status: Resolved Assessment and plan: Resolved. No weakness noted bilaterally to upper or lower extremities. Patient denies weakness, numbness or tingling. (2) Coronary artery disease Current Visit: Yes Status: Chronic Assessment and plan: Chronic. Patient with elevated troponins 2.17< 1.68< 1.80 Patient denies chest pain. He attributes his discomfort in his chest to anxiety. Audiology has evaluated the patient. Echocardiogram was performed on 01/07, demonstrated no intracardiac findings explained CVA but did demonstrate significant plaque in the level of the aortic arch in the descending thoracic aorta. After this test he developed chest discomfort, nausea, troponins were elevated at this point. Several ECGs were done, one shows A. fib. Patient denies palpitations. Cardiology discussed case with neurology, anticoagulation is recommended as well as continuing beta nadine therapy. Due to significant plaque formation of the aortic arch, patient is increased risk of another embolic event if LHC is performed. Continue DPT, statin, beta nadine, heparin drip for another 24 hours and transition to oral anticoagulation. Recommend repeat limited TTE to evaluate LVEF given an STEMI in the last 24 hours. Stop nitroglycerin drip and start Imdur prior to discharge. CAD history Continue aspirin, Lipitor, beta nadine Remain on telemetry Qualifiers: Coronary Disease-Associated Artery/Lesion type: [place] artery [place] vs. transplanted heart: [place] heart Associated angina: without angina Qualified Code(s): I25.10 - Atherosclerotic heart disease of [place] coronary artery without angina pectoris (3) Diabetes mellitus, type 2 Current Visit: Yes Status: Chronic Assessment and plan: Hemoglobin A1c 7.9% in Dec, 2017. Continue signed scale insulin, Accu-Cheks before meals and at bedtime, diabetic diet. Getting better glycemic control to decrease cardiac and vascular risk factors Qualifiers: Diabetes mellitus brick handler insulin use: with snf use Diabetes mellitus complication status: with kidney complications Diabetes mellitus complication detail: with chronic kidney disease Chronic kidney disease stage : stage 3 (moderate) Qualified Code(s): E11.22 - Type 2 diabetes mellitus with diabetic chronic kidney disease; N18.3 - Chronic kidney disease, stage 3 ( moderate); Z79.4 - long-term (current) use of insulin (4) Essential hypertension Current Visit: Yes Status: Chronic Assessment and plan: Chronic. Stable. Continue home medications. (5) Gastroesophageal reflux disease Current Visit: Yes Status: Chronic Assessment and plan: Chronic. Continue home medications. Qualifiers: Esophagitis presence: esophagitis presence not specified Qualified Code(s) : K21.9 - Gastro-esophageal reflux disease without esophagitis (6) Acute kidney injury superimposed on CKD Current Visit: Yes Status: Acute Assessment and plan: Chronic see KD stage III. Renal function is improved since admission. Continue IV fluids as needed and monitor labs. Avoid nephrotoxins. (7) Acute cerebral infarction Current Visit: Yes Status: Acute Assessment and plan: Patient with acute CVA. He presented with right-sided deficits including right arm and leg weakness, numbness and tingling of right hand. She has returned to baseline, no numbness or tingling. His speech is clear. MRI confirmed CVA with multiple small acute to subacute embolic infarcts bilaterally. ADRIÁN showed no intracardiac source for embolus, grade 4 plaquing of descending thoracic aorta just below the aortic arch there is a protruding, nonmobile atheroma. No intra-arterial shunt noted. Preliminary report for bilateral carotids shows left ICA 40-59%, right ICA 60-79 %. Neurology following. Continue Plavix, aggressive management of risk factors including hypertension, diabetes, hyperlipidemia. (8) NSTEMI (non-ST elevated myocardial infarction) Current Visit: Yes Status: Acute Assessment and plan: Plan as above. Cardiology following. Stopping her nitro drip, stopping heparin drip and we will transition to by mouth anticoagulation. - Time Spent With Patient Total time spent is greater than 50% in coordination of care (as documented) at patient's floor/unit and/or counseling patient: less than 15 minutes - Subjective Interval history: Patient was seen and evaluated at bedside at 9:35 AM. Patient is wearing oxygen mask. He reports that he has chronic anxiety and reports that he has been on Xanax and Ativan in the past, feels he is still having anxiety at this time. He requests that he not have any substances that are sedating or addictive. Patient reports that he lives home alone, states that he could possibly benefit from home health. He denies any headache, nausea, vomiting, diarrhea. He denies chest pain, does report continued anxiety. He denies shortness of breath abdominal pain, or peripheral edema. - Constitutional Vitals: Temp Pulse Resp BP Pulse Ox 98.9 F 98 16 157/81 95 01/08/18 15:13 01/08/18 15:13 01/08/18 15:13 01/08/18 15:13 01/08/18 15:13 General appearance: Present: cooperative, mild distress, A&O X 3, pleasant, answers questions appropriately - Head Head exam: Present: atraumatic, normal inspection, normocephalic - Eye Eye exam: Present: conjuntiva pink, sclera anicteric - Neck Neck exam general surgery: Present: supple, trachea midline. Absent: lymphadenopathy, tenderness - Respiratory Respiratory exam: Present: CTAB. Absent: accessory muscle use, rales, rhonchi, wheezes - Cardiovascular Cardiovascular exam: Present: RRR, +S1, +S2. Absent: diastolic murmur, gallop, rubs, systolic murmur - GI/Abdominal GI/Abdominal exam: Present: normal bowel sounds, soft, no peritoneal signs. Absent: distended, hepatomegaly, tenderness - Extremities Exam Extremities exam: Present: normal capillary refill, normal inspection, warm, radial pulses palpable and symmetrical. Absent: calf tenderness, cyanotic, pedal edema, tenderness - Neurological Exam Neurological exam: Present: alert, oriented X3, no focal deficits, strengths equal and symetr throughout. Absent: facial droop, speech deficit - Skin Skin exam: Present: dry, intact, normal color, warm. Absent: rash Internal Medicine: Result - Labs CBC & Chem 7: 01/07/18 19:13 01/08/18 02:43 Labs: Short CBC 01/07/18 Range/Units 19:13 WBC 9.4 (4.3-11.1) K/mcL Hgb 12.4 L (12.9-16.9) g/dL Hct 37.2 L (37.5-50.1) % Plt Count 183 (140-400) K/mcL BMP 01/08/18 01/08/18 02:43 02:43 Sodium 139 Potassium 3.9 4.0 Chloride 110 H Carbon Dioxide 19 L BUN 21 Creatinine 1.41 H Glucose 165 H Calcium 8.5 L Cardiac Enzymes 01/07/18 01/08/18 01/08/18 Range/Units 21:56 02:43 04:14 Troponin I 2.17 H* 1.68 H* 1.80 H* (< 0.04) ng/mL - ABG Interpretation ABG results: PT/INR, D-dimer PT 11.0 Seconds (9.4-12.1) 01/07/18 19:13 Consult Discharge Plan - Plan Referrals: Nico Toledo MD [Partnered Physician] - 02/05/18 3:15 pm
[2018-01-08 19:10] VITALS: BP 124/74
[2018-01-08] MEDS ORDERED: Ondansetron 4 MG/2 ML VIAL IVP PRN (20:39)
[2018-01-08] MEDS ORDERED: Ondansetron 4 MG/2 ML VIAL ONE (20:41)
[2018-01-08] MEDS ORDERED: *HR* Atropine Sulfate 1 MG/10 ML SYRINGE ONE (21:43)
[2018-01-08] MEDS ORDERED: *HR* EPINEPHrine 1 MG/10 ML SYRINGE IVP ONE (21:46)
--- NOTE | 2018-01-08 23:26 | Event Note ---
<Brett Cruz - Last Filed: 01/08/18 23:47> Date of Encounter: 01/08/18 Time of Encounter: 20:28 Notified by pts. nurse Rebeka RN that pt. was reporting CP, SOB, vomiting, and was diaphoretic. Pt. was admitted w/right hand numbness. Hx of CAD w/elevated troponins of 2.17, 1.68, and 1.80 during this admission. Cardiology was consulted. Echocardiogram revealed significant plaque in the level of the aortic arch and the descending thoracic aorta. Cardiology discussed case with neurology with recommendation for anticoagulation and beta nadine continuing therapy. It was determined that due to significant plaque formation of the aortic arch, patient was at increased risk for another embolic event is LHC performed. Suspected STEMI within the past 24 hours. Pt. was on heparin drip as well as nitro drip which was discontinued d/t no chest pain. Called nurse to discuss the patient at 20:40 w/recommendation to administer SL nitro and give IVP Zofran which nurse did at 20:46. Notified that pt. was pale and on 10L of O2 via oxymask. 20:49 informed nurse that I was on my way to see patient immediately. En route to see patient from [facility], [place] Teran was called overhead at 20:49. Arrived at pts. room to find team of nurses, Dr. Lou, and Dr. Driver initiating Code protocol and performing ACLS on pt. Pts. code status at the time of the Code was full code. Several rounds of epi administered as well as bicarb. Pts. pulse returned and was in 120s to 130s. Pts. HR began to decline. Additional CPR performed. Notified Bed Management of need for ICU bed immediately and report of ICU bed 11 being available was confirmed. Pts. HR in 100s when he was transported from [facility] to ICU at 21:35. Pts. status discussed w/ family prior to leaving and pts. code status was changed to DNRCCCA. HR began to drop to 50s while in ICU w/thready pulse. Atropine administered at 21: 44. Pts. HR continued to drop and went to asystole at 21:47. Ventilator was turned off and pt. had no spontaneous respirations and no audible pulse. Time of charted at 21:47. Pts. daughter called nurse at 22:00 stating that her aunt had called her to inform her that her father had . Pt. said she was unable to come to hospital at that time. Pts. daughter stated there were no other family members that would come to see pt. <Delia Lou - Last Filed: 01/09/18 07:00> Date of Encounter: 01/09/18 CODE [place]ILTON was called overhead and I present to bedside immediately. ACLS protocol followed. Patient shows PEA, he was given epinephrine 1 mg IV 7, bicarbonate 50 mEq iv x3, defibrillation 200J x 1. Patient was intubated and on bag ventilation. Patient has regained pulse once but became pulseless again quickly. The CPR lasted over 30 minutes. Patient finally regained pulse and was transferred to ICU. At that time family expressed wishes to change the CODE STATUS from full code to DNR CCA. In ICU, patient developed bradycardia, not to respond to IV atropine, patient became pulseless again and no further CPR pursued per family wishes. Pt was declared at 21:47, 01/08/2018.
--- NOTE | 2018-01-09 07:04 | Death Note ---
Pronouncement Note - Date and Time of Date of : 01/08/18 Time of : 21:47 - PCOD Preliminary cause of : Cardiac arrest - Additional Data Confirmation of : no pulse, no respirations, no heart sounds, pupils fixed and dilated Family: contacted Attending/PCP notified?: No Attending physician: Nivia Reyes MD Was code activated?: Yes Autopsy requested?: No odd shoe examiner notified?: No Organ bank notified?: No Advance directives: Yes (DNR CCA)
== END 2018-01-08 21:47 | disposition expired | DRG 64 ==
LOC: EMEROO 18:33 → 3BNU 18:33 → ICNU 01-08 22:01
PROVIDERS: ADMIT Internal Medicine Hematology & Oncology; ATTEND Internal Medicine Hematology & Oncology